=== PATIENT | female | born 1980 | race Caucasian/White ===

== ENCOUNTER → 2018-08-23 16:28 | Emergency (ER) | payer OTHER ==
--- NOTE | 2018-08-23 19:13 | ED ---
Palpitations / Dysrhythmia - HPI Summary HPI Summary: Pt is a 37 y/o F presenting to the ED with a chief complaint of heart palpitations. She states that she has hx of heart palpitations that come on randomly, last about 1.5 minutes, then go away for months at a time. Her last episode, she had given and they transferred her to the cardiac unit, where their tests were inconclusive. Today, she experienced palpitations four times in one hour, and fell down on one of them d/t dizziness. Afterwards, she had some chest discomfort that has since resolved. She reports palpitations, dizziness, falling, SOB, and chest discomfort. She denies LOC, hitting her head, and anxiety. - History of Current Complaint Chief Complaint: EDDysrhythmPalp Time Seen by Provider: 08/23/18 18:50 Hx Obtained From: Patient Onset/Duration: Sudden Onset, Lasting Minutes, Resolved Timing: Intermittent Episodes Lasting: - 1.5min Severity Initially: Moderate Severity Currently: None Character: Pounding Aggravating: Nothing Alleviating: Nothing Associated Signs & Symptoms: Dizzy, Chest Pain, Shortness of Breath - Allergy/Home Medications Allergies/Adverse Reactions: Allergies Allergy/AdvReac Type Severity Reaction Status Date / Time diphenhydramine Allergy Hives Verified 08/23/18 16:37 [From Benadryl] vancomycin Allergy Hives Verified 08/23/18 16:37 Home Medications: Home Medications NK [No Home Medications Reported] 08/23/18 [History Confirmed 08/23/18] PMH/Surg Hx/FS Hx/Imm Hx Previously Healthy: Yes Endocrine/Hematology History: Denies: Hx Diabetes Cardiovascular History: Denies: Hx Hypertension Psychiatric History: Denies: Hx Anxiety, Hx Panic Disorder - Surgical History Surgery Procedure, Year, and Place: 98 Tonsils, 2001 Interstim implant- removed 2009, 2010 Rt breast abcess,13, 14, 17 C-sections. Infectious Disease History: No Infectious Disease History: Denies: Traveled Outside the [place] in Last 30 Days - Family History Known Family History: Negative: Respiratory Disease - Social History Alcohol Use: Rare Hx Substance Use: No Substance Use Type: Reports: None Hx Tobacco Use: No Smoking Status (MU): Never Smoked Tobacco Review of Systems Positive: Palpitations, Chest Pain - discomfort Positive: Shortness Of Breath Musculoskeletal: Negative - head injury Positive: Other - fall Neurological: Other - dizziness Negative: Syncope Negative: Anxious All Other Systems Reviewed And Are Negative: Yes Physical Exam - Summary Physical Exam Summary: Appearance: Well appearing, no pain distress Skin: warm, dry, reflects adequate perfusion Head/face: normal Eyes: EOMI, ARISTIDES ENT: normal Neck: supple, non-tender Respiratory: CTA, breath sounds present Cardiovascular: RRR, pulses symmetrical Abdomen: non-tender, soft Musculoskeletal: normal, strength/ROM intact Neuro: normal, sensory motor intact, A&Ox3 Triage Information Reviewed: Yes Vital Signs On Initial Exam: Initial Vitals Temp Pulse Resp BP Pulse Ox 97.4 F 81 16 156/93 97 08/23/18 16:33 08/23/18 16:33 08/23/18 16:33 08/23/18 16:33 08/23/18 16:33 Vital Signs Reviewed: Yes Diagnostics - Vital Signs Vital Signs Temp Pulse Resp BP Pulse Ox 08/23/18 16:33 97.4 F 81 16 156/93 97 - Laboratory Result Diagrams: 08/23/18 19:32 08/23/18 19:32 Lab Statement: Any lab studies that have been ordered have been reviewed, and results considered in the medical decision making process. - Radiology CXR Radiology Interpretation Completed By: ED Physician Summary of Radiographic Findings: No acute process. Pending official radiology report. - EKG 1634 Cardiac Rate: NL - 83bpm EKG Rhythm: Sinus Rhythm ST Segment: Normal Ectopy: None Summary of EKG Findings: EKG at 1634 shows NSR at 83bpm with no STEMI. Course/Dx - Course Course Of Treatment: Pt is a 37 y/o F presenting to the ED with a chief complaint of heart palpitations that come on randomly and last for about 1.5 minutes at a time. She reports palpitations, dizziness, falling, SOB, and chest discomfort. She denies LOC, hitting her head, and anxiety. Pt's physical exam is normal. EKG at 1634 shows NSR at 83bpm with no STEMI. CXR shows no acute process, pending official radiology report. Pt will be d/c'ed home with dx of palpitations and instructions to follow up with Dr. Fraire of cardiology. She is stable and agreeable with this plan. - Diagnoses Differential Diagnosis/HQI/PQRI: Positive: Panic Disorder, Other - palpitations Provider Diagnoses: Palpitations Discharge - Sign-Out/Discharge Documenting (check all that apply): Patient Departure Patient Received Moderate/Deep Sedation with Procedure: No - Discharge Plan Condition: Stable Disposition: HOME Referrals: Mary Barreto MD [Primary Care Provider] - Suzy Fraire MD [Medical Doctor] - Additional Instructions: Please follow up with Dr. Fraire of cardiology within the next 3 days. Return to the emergency department with any new or worsening symptoms. - Billing Disposition and Condition Condition: STABLE Disposition: Home - Attestation Statements Document Initiated by Scribe: Yes Documenting Scribe: Kelley Hager Provider For Whom Clariceibe is Documenting (Include Credential): Tam Boyd MD. Scribe Attestation: Kelley Melton, shelbyed for Tam Boyd MD. on 08/23/18 at 2027. Scribe Documentation Reviewed: Yes Provider Attestation: The documentation as recorded by the Kelley henderson accurately reflects the service I personally performed and the decisions made by Tam maria MD. Status of Scribe Document: Viewed
[2018-08-23 19:38] LABS: ABS Basophils 0.1 10^3/ul (0-0.2); ABS Eosinophils 0.2 10^3/ul (0-0.6); ABS Lymphocytes 2.9 10^3/ul (1.0-4.8); ABS Monocytes 0.6 10^3/ul (0-0.8); ABS Neutrophils 4.7 10^3/ul (1.5-7.7); Eosinophil % 1.8 %; Hematocrit 39 % (35-47); Hemoglobin 13.5 g/dL (12.0-16.0); Lymphocyte % 34.5 %; Mean Corpuscular HGB Conc 34 g/dL (31-36); Mean Corpuscular Hemoglobin 32 pg (27-31); Mean Corpuscular Volume 94 fL (80-97); Mean Platelet Volume 7.6 fL (7.4-10.4); Nucleated Red Blood Cells % 0.1; Platelet Count 265 10^3/uL (150-450); Red Blood Count 4.19 10^6 /uL (3.70-4.87); Red Cell Distribution Width 13 % (10.5-15); White Blood Count 8.3 10^3/uL (3.5-10.8)
[2018-08-23 19:47] LABS: Activated Partial Thrombo Time 34.8 seconds (26.0-38.0); INR 1.03 (0.82-1.09)
[2018-08-23 20:00] LABS: Albumin 4.5 g/dL (3.2-5.2); Albumin/Globulin Ratio 1.7 (1-3); BUN/Creatinine Ratio 23.5 (8-20); Calcium 9.6 mg/dL (8.6-10.3); EGFR African American 117.2 (>60); EGFR Non-African American 96.8 (>60); Globulin 2.7 g/dL (2-4); Total Bilirubin 0.3 mg/dL (0.2-1.0); Total Protein 7.2 g/dL (6.4-8.9)
[2018-08-23 20:24] LABS: TSH (Thyroid Stimulating Horm) 3.65 mcIU/mL (0.34-5.60)
[2018-08-23 20:34] VITALS: BP 126/92
== END | disposition home or self-care (01) ==
LOC: ED 16:28
DX: R00.2 Palpitations (principal); R06.02 Shortness of breath; Z88.3 Allergy status to other anti-infective agents; Z88.8 Allergy status to other drugs, medicaments and biological substances
CPT/HCPCS: 36415; 71045; 80053; 83605; 83735; 83880; 84443; 84484; 85025; 85379; 85610; 85730; 93005; 99282

== ENCOUNTER 2018-10-20 19:42 | Observation (INO) | payer OTHER ==
--- OUTSIDE RECORDS SUMMARY | 2018-10-20 19:58 | XMS REPORT | Continuity of Care Document ---
:1980 External Reference #:[id number] Author Name EnmanuelRose Mary horneecca Care Team Providers Name Role Phone Mary Barreto MD Primary Care Physician Unavailable Payers Date Identification Numbers Payment Provider Subscriber Policy Number: [id number] [employer] Bernard Ireland PayID: [id number] [address] [place] [address] Family History Date Family Member(s) Observation Comments Father Cancer Father Hypertension Mother Hypertension Social History Type Date Description Comments Sex Unknown Lives With Lives With Children Tobacco Use Start: Unknown Never Smoked Cigarettes Smoking Status Reviewed: 06/30/18 Never Smoked Cigarettes Tobacco Use Start: Unknown Patient has never smoked Exercise Type/Frequency Exercises regularly Allergies, Adverse Reactions, Alerts Active Allergies Reaction Severity Comments Date Benadryl Hives 06/30/2018 Vancomycin Hives 06/30/2018 Medications Description No Active Medications Vital Signs Date Vital Result Comment 06/30/2018 1:52pm Height 67 inches 5'7" Weight 200.00 lb Heart Rate 81 /min BP Systolic 120 mmHg BP Diastolic 76 mmHg O2 % BldC Oximetry 97 % BMI (Body Mass Index) 31.3 kg/m2 Last Menstrual Period [id number] Results Test Date Facility Test Result H/L Range Note CBC No Diff 06/30/2018 [facility] White Blood 9.6 10^3/uL N 3.5-10.[address] [place] [address] [phone] Red Blood Count 4.22 10^6/uL N 3.70-4.87 Hemoglobin 13.7 g/dL N 12.0-16.0 Hematocrit 40 % N 33-41 Mean Corpuscular Volume 94 fL N 80-97 Mean Corpuscular Hemoglobin 33 pg High 27-31 Mean Corpuscular HGB Conc 35 g/dL N 31-36 Red Cell Distribution Width 12 % N 10.5-15 Platelet Count 286 10^3/uL N 150-450 Mean Platelet Volume 8.2 fL N 7.4-10.4 Comp Metabolic Panel 06/30/2018 [facility] Sodium 141 mmol/L N 135-145 [address] [place] [address] [phone] Potassium 4.3 mmol/L N 3.5-5.0 Chloride 106 mmol/L N 101-111 Co2 Carbon Dioxide 27 mmol/L N 22-32 Anion Gap 8 mmol/L N 2-11 Glucose 83 mg/dL N 70-100 Blood Urea Nitrogen 16 mg/dL N 6-24 Creatinine 0.75 mg/dL N 0.51-0.95 BUN/Creatinine Ratio 21.3 High 8-20 Calcium 9.9 mg/dL N 8.6-10.3 Total Protein 7.0 g/dL N 6.4-8.9 Albumin 4.7 g/dL N 3.2-5.2 Globulin 2.3 g/dL N 2-4 Albumin/Globulin Ratio 2.0 N 1-3 Total Bilirubin 0.30 mg/dL N 0.2-1.0 Alkaline Phosphatase 76 U/L N 34-104 Alt 12 U/L N 7-52 Ast 15 U/L N 13-39 Egfr Non- 86.5 >60 Egfr 104.6 >60 1 Laboratory test 06/30/2018 [facility] TSH (Thyroid 2.18 mcIU/mL N 0.34-5.[address] [place]) [place] [address] [phone] Vitamin D Total 25(Oh) 18.9 ng/mL Low 20-50 Laboratory test 06/30/2018 [facility] Cytology SEE RESULT BELOW 2 finding [address] [place] [address] [phone] 1 Because ethnic data is not always readily available, this report includes an eGFR for both -Americans and non- Americans. The National Kidney Disease Education Program (NKDEP) does not endorse the use of the MDRD equation for patients that are not between the ages of 18 and 70, are , have extremes of body size, muscle mass, or nutritional status, or are non- or non-. According to the National Kidney Foundation, irrespective of diagnosis, the stage of the disease is based on the level of kidney function: Stage Description GFR(mL/min/1.73 m(2)) 1 Kidney damage with normal or decreased GFR 90 2 Kidney damage with mild decrease in GFR 60-89 3 Moderate decrease in GFR 30-59 4 Severe decrease in GFR 15-29 5 Kidney failure <15 (or dialysis) 2 SEE RESULT BELOW Name: BLANCA IRELAND : [address]: Mimi Mackey NP [facility] Acct: [id number] Unit: [id number] AGE: 37 Location: [facility] Re06/30/18 SEX: F Status: REG REF SPEC: [id number] YONI: 06/30/18- SUBM DR: Mimi Mackey NP, CNM REQ: [id number] RECD: 06/30/18 STATUS: SOUT _ ORDERED: TP IMAGE ANALYS, HPV/Thin Prep COMMENTS: [id number] Negative for Intraepithelial lesion or Malignancy Date Time Test Result Flag (u) Normal Range 06/30/18 1443 @ HPV RNA Negative Negative @ @ The high-risk HPV types detected by the assay include: 16, @ 18, 31, 33, 35, 39, 45, 51, 52, 56, 58, 59, 66, and 68. A. Ectocervical/Endocervical Specimen Adequacy: Satisfactory of evaluation Transformation zone component identified Patient Information: HPV: High risk HPV RNA testing regardless of pap results. Actual Specimen Date: 06/30/18 Last Menstrual Date: 06/14/18 ?: N Post Menopausal?: N Hysterectomy?: N Signed by and Reported on: AISHA Morillo(ASCP) 1029 This Pap test was evaluated with the assistance of the [employer] Test Imaging System. Due to cytologic findings at the director of occupational therapy microscope, comprehensive manual rescreening by a Chief Psychologist may be required. The Pap Smear is a screening test designed to aid in the detection of premalignant and malignant conditions of the uterine cervix. It is not a diagnostic procedure and should not be used as the sole means of detecting cervical cancer. Both false- positive and false- negative reports do occur. Depending on your risk status, a Pap smear should be obtained and evaluated every 1-3 years. END OF REPORT DEPARTMENT OF PATHOLOGY, [address] [place] [address] Devon Andres M.D. 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 Will mail letter with result, rec call office if does not receive result within 2 weeks.N93.9 Abnormal uterine and vaginal bleeding, unspecifiedComments:Will have labs done today and will schedule a pelvic ultrasound. She was advised to go to the emergency department for increased pain, heavy bleeding, severe nausea/vomiting or fever.R10.32 Left lower quadrant pain
[2018-10-20] MEDS ORDERED: ED cefTRIAXone 1 GM/50 ML 1 GM/50 ML PREMIX.SET IVPB ONE (21:31)
--- NOTE | 2018-10-20 21:42 | ED ---
Abdominal Pain/Female - HPI Summary HPI Summary: 37 yo female presents to [facility] ED with RLQ pain. She tells me that around 1500 today she developed sudden onset moderate RLQ pain. She thought it was gas or needing to have a BM, but this did not change her symptoms. She went to lay down for about 2 hours and pain increased. She began to have pain in her LLQ as well. She was feeling well this morning. Denies fever, chills, SOB, chest pain, n/v, dysuria, flank pain, vaginal bleeding or discharge. LMP was 1 month ago. Sexually active with who has vasectomy. Hx of 3 c sections, but no other abdominal surgeries. - History of Current Complaint Chief Complaint: EDAbdPain Stated Complaint: ABD PAIN/FEVER PER PT Time Seen by Provider: 10/20/18 21:42 Hx Obtained From: Patient Onset/Duration: Sudden Onset Severity Initially: Moderate Severity Currently: Moderate Pain Intensity: 6 Pain Scale Used: 0-10 Numeric Allergies/Adverse Reactions: Allergies Allergy/AdvReac Type Severity Reaction Status Date / Time diphenhydramine Allergy Hives Verified 10/20/18 19:51 [From Benadryl] vancomycin Allergy Hives Verified 10/20/18 19:51 PMH/Surg Hx/FS Hx/Imm Hx Endocrine/Hematology History: Denies: Hx Diabetes Cardiovascular History: Denies: Hx Hypertension Respiratory History: Denies: Hx Asthma, Hx Chronic Obstructive Pulmonary Disease (COPD) GI History: Denies: Hx Crohn's Disease, Hx Diverticulosis, Hx Gall Bladder Disease, Hx Gastroesophageal Reflux Disease Psychiatric History: Denies: Hx Anxiety, Hx Panic Disorder - Surgical History Surgical History: Yes Surgery Procedure, Year, and Place: 98 Tonsils, 2001 Interstim implant- removed 2009, 2010 Rt breast abcess,13, 14, 17 C-sections. Infectious Disease History: Yes Infectious Disease History: Denies: Traveled Outside the [place] in Last 30 Days - Family History Known Family History: Negative: Respiratory Disease - Social History Occupation: Employed Full-time Lives: With Family Alcohol Use: Rare Hx Substance Use: No Substance Use Type: Reports: None Hx Tobacco Use: No Smoking Status (MU): Never Smoked Tobacco Review of Systems Constitutional: Negative Eyes: Negative ENT: Negative Cardiovascular: Negative Respiratory: Negative Positive: Abdominal Pain Genitourinary: Negative Musculoskeletal: Negative Skin: Negative Neurological: Negative Psychological: Normal All Other Systems Reviewed And Are Negative: Yes Physical Exam - Summary Physical Exam Summary: GENERAL: NAD. WDWN. No pain distress. SKIN: No rashes, sores, lesions, or open wounds. NECK: Supple. Nontender. No lymphadenopathy. CHEST: CTAB. No r/r/w. No accessory muscle use. Breathing comfortably and in no distress. CV: RRR. Without m/r/g. Pulses intact. Cap refill <2seconds ABDOMEN: Moderate TTP RLQ at [place]. Positive rovsing's and psoas. Soft. No distention or guarding. No CVA tenderness. Bowel sounds present NEURO: Alert. PSYCH: Age appropriate behavior. Triage Information Reviewed: Yes Vital Signs On Initial Exam: Initial Vitals Temp Pulse Resp BP Pulse Ox 98.1 F 92 16 153/92 96 10/20/18 19:47 10/20/18 19:47 10/20/18 19:47 10/20/18 19:47 10/20/18 19:47 Vital Signs Reviewed: Yes Diagnostics - Vital Signs Vital Signs Temp Pulse Resp BP Pulse Ox 10/20/18 19:47 98.1 F 92 16 153/92 96 - Laboratory Lab Results: Laboratory Tests 10/20/18 10/20/18 10/20/18 21:49 21:49 22:42 WBC 13.3 H RBC 4.30 Hgb 13.7 Hct 41 MCV 94 MCH 32 H MCHC 34 RDW 13 Plt Count 225 MPV 7.8 Neut % (Auto) 67.3 Lymph % (Auto) 22.4 [place] % (Auto) 8.9 Eos % (Auto) 1.0 Baso % (Auto) 0.4 Absolute Neuts (auto) 9.0 H Absolute Lymphs (auto) 3.0 Absolute Monos (auto) 1.2 H Absolute Eos (auto) 0.1 Absolute Basos (auto) 0.1 Absolute Nucleated RBC 0.0 Nucleated RBC % 0.1 Sodium 140 Potassium 4.2 Chloride 107 Carbon Dioxide 25 Anion Gap 8 BUN 14 Creatinine 0.81 Est GFR ( Amer) 95.7 Est GFR (Non-Af Amer) 79.1 BUN/Creatinine Ratio 17.3 Glucose 96 Calcium 9.4 Total Bilirubin 0.40 AST 14 ALT 13 Alkaline Phosphatase 61 C-Reactive Protein 4.27 Total Protein 7.5 Albumin 4.7 Globulin 2.8 Albumin/Globulin Ratio 1.7 Lipase 23 Beta HCG, Quant < 0.60 Urine Color Yellow Urine Appearance Clear Urine pH 5.0 Ur Specific [place] 1.032 H Urine Protein 1+(30 mg/dl) A Urine Ketones Negative Urine Blood 2+ A Urine Nitrate Negative Urine Bilirubin Negative Urine Urobilinogen Negative Ur Leukocyte Esterase Negative Urine WBC (Auto) Trace(0-5/hpf) Urine RBC (Auto) 3+(>10/hpf) A Ur Squamous Epith Cells Present A Urine Bacteria 1+ A Urine Glucose Negative Result Diagrams: 10/20/18 21:49 10/20/18 21:49 Lab Statement: Any lab studies that have been ordered have been reviewed, and results considered in the medical decision making process. - CT abd/pel CT Interpretation Completed By: Radiologist Summary of CT Findings: IMPRESSION: Equivocal findings of acute appendicitis. No additional findings to correlate. with patient's symptomatology. Abdominal Pain Fem Course/Dx - Course Course Of Treatment: CT as above with RLQ TTP and leukocytosis. Discussed case with Dr. Penn and agrees to admit the pt. He advises no anbx at this time and make pt npo. Discussed with pt and she is agreeable to this. - Diagnoses Provider Diagnoses: Appendicitis - Provider Notifications Discussed Care Of Patient With: Juice Penn Time Discussed With Above Provider: 23:35 Instructed by Provider To: Admit As Inpatient Discharge - Sign-Out/Discharge Documenting (check all that apply): Patient Departure Patient Received Moderate/Deep Sedation with Procedure: No - Discharge Plan Condition: Stable Disposition: ADMITTED TO [facility] Referrals: Mary Barreto MD [Primary Care Provider] - - Billing Disposition and Condition Condition: STABLE Disposition: Admitted to [facility]
[2018-10-20 21:57] LABS: ABS Basophils 0.1 10^3/ul (0-0.2); ABS Eosinophils 0.1 10^3/ul (0-0.6); ABS Monocytes 1.2 10^3/ul (0-0.8); Hematocrit 41 % (35-47); Hemoglobin 13.7 g/dL (12.0-16.0); Lymphocyte % 22.4 %; Mean Corpuscular HGB Conc 34 g/dL (31-36); Mean Corpuscular Hemoglobin 32 pg (27-31); Mean Corpuscular Volume 94 fL (80-97); Mean Platelet Volume 7.8 fL (7.4-10.4); Nucleated Red Blood Cells % 0.1; Platelet Count 225 10^3/uL (150-450); Red Cell Distribution Width 13 % (10-15); White Blood Count 13.3 10^3/uL (3.5-10.8)
[2018-10-20 22:14] LABS: ALT 13 U/L (7-52); AST 14 U/L (13-39); Albumin 4.7 g/dL (3.2-5.2); Albumin/Globulin Ratio 1.7 (1-3); Alkaline Phosphatase 61 U/L (34-104); Anion Gap 8 mmol/L (2-11); BUN/Creatinine Ratio 17.3 (8-20); Blood Urea Nitrogen 14 mg/dL (6-24); C Reactive Protein 4.27 mg/L (<8.01); CO2 Carbon Dioxide 25 mmol/L (22-32); Calcium 9.4 mg/dL (8.6-10.3); Chloride 107 mmol/L (101-111); EGFR African American 95.7 (>60); EGFR Non-African American 79.1 (>60); Globulin 2.8 g/dL (2-4); Glucose 96 mg/dL (70-100); Potassium 4.2 mmol/L (3.5-5.0); Sodium 140 mmol/L (135-145); Total Protein 7.5 g/dL (6.4-8.9)
[2018-10-20 22:21] LABS: HCG Pregnancy < 0.60 mIU/mL
[2018-10-20 22:53] LABS: Urine Appearance Clear; Urine Bacteria 1+ (Absent); Urine Bilirubin Negative (Negative); Urine Blood 2+ (Negative); Urine Color Yellow; Urine Glucose Negative (Negative); Urine Ketones Negative (Negative); Urine Nitrite Negative (Negative); Urine Protein 1+(30 mg/dL) (Negative); Urine Red Blood Cell 3+(>10/hpf) (Absent); Urine Specific Gravity 1.032 (1.010-1.030); Urine Squamous Epithelial Cell Present (Absent); Urine Urobilinogen Negative (Negative); Urine White Blood Cell Trace(0-5/hpf) (Absent)
[2018-10-20] MEDS ORDERED: HYDROmorphone INJ* 0.5 MG/0.5 ML SYRINGE IV SLOW PU PRN (23:45)
[2018-10-20] MEDS ORDERED: Lactated Ringers 1000 ML Bag* 1,000 ML IV SCH (23:45)
[2018-10-20] MEDS ORDERED: Acetaminophen TAB* 325 MG PO PRN (23:45)
[2018-10-20] MEDS ORDERED: Ondansetron INJ* 2 MG/ML VIAL IV PRN (23:45)
[2018-10-21] MEDS: HYDROmorphone INJ1* 1 MG/ML SYRINGE IV SLOW PU PRN ×6 (01:01→21:48)
[2018-10-21] MEDS: hydrOXYzine HCL TAB* 25 MG PO PRN ×3 (04:09→18:15)
[2018-10-21 07:33] LABS: ABS Basophils 0.1 10^3/ul (0-0.2); ABS Eosinophils 0.1 10^3/ul (0-0.6); ABS Lymphocytes 2.4 10^3/ul (1.0-4.8); ABS Monocytes 0.6 10^3/ul (0-0.8); ABS Neutrophils 4.2 10^3/ul (1.5-7.7); Eosinophil % 1.3 %; Hematocrit 37 % (35-47); Hemoglobin 12.8 g/dL (12.0-16.0); Lymphocyte % 32.5 %; Mean Corpuscular HGB Conc 35 g/dL (31-36); Mean Corpuscular Hemoglobin 32 pg (27-31); Mean Corpuscular Volume 93 fL (80-97); Mean Platelet Volume 7.8 fL (7.4-10.4); Platelet Count 210 10^3/uL (150-450); Red Blood Count 3.94 10^6 /uL (3.70-4.87); Red Cell Distribution Width 13 % (10-15); White Blood Count 7.4 10^3/uL (3.5-10.8)
[2018-10-21 07:50] LABS: BUN/Creatinine Ratio 17.6 (8-20); C Reactive Protein 15.35 mg/L (<8.01); Calcium 8.9 mg/dL (8.6-10.3); EGFR African American 117.2 (>60); EGFR Non-African American 96.8 (>60); Potassium 3.8 mmol/L (3.5-5.0)
[2018-10-21] MEDS ORDERED: Ketorolac INJ* 30 MG/ML 1 ML VIAL ONE (08:16)
[2018-10-21] MEDS ORDERED: Ondansetron INJ* 2 MG/ML VIAL ONE ×2 (08:16→10:44)
[2018-10-21] MEDS ORDERED: Propofol* 10 MG/ML 20 ML BTL ONE (08:16)
[2018-10-21] MEDS ORDERED: Dexamethasone IV* 4 MG/ML 1 ML (4 MG) ONE (08:16)
[2018-10-21] MEDS ORDERED: Midazolam* 1 MG/ML 5 ML VIAL (5 MG) ONE (08:16)
[2018-10-21] MEDS ORDERED: fentaNYL* 50 MCG/ML 2 ML VIAL (100 MCG VIAL) ONE ×2 (08:16→11:15)
[2018-10-21] MEDS ORDERED: Lidocaine 2% PF * 5 ML VIAL ONE (08:16)
[2018-10-21] MEDS ORDERED: Cisatracurium* 2 MG/ML MDV 5 ML ONE (08:16)
[2018-10-21] MEDS ORDERED: Bupivacaine 0.25% W/EPI* 10 ML SDV ONE (08:19)
[2018-10-21] MEDS ORDERED: ceFOXitin 2 GM IVPREMIX* 2 GM/50 ML BAG ONE (08:41)
[2018-10-21] MEDS ORDERED: Neostigmine Methylsulfate* 1 MG/ML 10 ML VIAL (1 mg/ml) ONE (09:57)
[2018-10-21] MEDS ORDERED: Glycopyrrolate IV* 0.2 MG/ML 1 ML VIAL ONE (09:57)
[2018-10-21] MEDS ORDERED: Naloxone* 0.4 MG/ML 1 ML VIAL IV PRN (10:00)
[2018-10-21] MEDS ORDERED: fentaNYL* 50 MCG/ML 2 ML VIAL (100 MCG VIAL) IV PRN (10:00)
[2018-10-21] MEDS ORDERED: Ondansetron INJ* 2 MG/ML VIAL IV PRN (10:00)
--- NOTE | 2018-10-21 10:20 | BRIEFOPN ---
Brief Operative Note - Surgery Procedures: OPERATIVE REPORT Pre-op: Acute appendicitis Post-Op: Same, suppurative appendicitis Procedure:Laparoscopic appendectomy Surgeon: MD Fili Asst: none Anes: general with local , Dr. Ortiz IVF:1 liter of crystalloid EBL:min Specimen: appendix Drain: none Wound: 3 To PACU
[2018-10-21] MEDS ORDERED: Scopolamine 1.5 mg* PATCH ONE (10:40)
--- NOTE | 2018-10-21 10:42 | HP ---
CC: [facility]; Dr. Mary Barreto, Family Medicine [facility] HISTORY AND PHYSICAL: DATE OF ADMISSION: 10/21/18 CHIEF COMPLAINT: Right lower quadrant abdominal pain. HISTORY OF PRESENT ILLNESS: Ms. Blanca Reyes is a very pleasant 37-year-old woman, who developed some mild epigastric pain and also some right lower quadrant abdominal pain at around 3 o'clock in th e afternoon. This was associated with anorexia, with no nausea or vomiting. She had no fevers or di arrhea. She had eaten normal lunch and was feeling well during the day. The pain progressively worsened in the right lower quadrant and she presented to the emergency room l ater last night. She was noted to have no fever, but an elevated white blood cell count of 13,000. The rest of her laboratory workup was unremarkable. She had some suprapubic discomfort as well. She had no dysuria or flank pain. There was no vaginal b leeding or discharge. Her last menstrual period was about a month ago and she is presently nursing h er youngest child. She has had 3 sections, but no other abdominal surgeries. In the emergency room, she underwent a CT scan of the abdomen and pelvis. I did review these images. This shows an appendix, which showed some mild dilation with some thickening of the wall, but with n o periappendiceal stranding. There was no fluid or abscess noted. There were no other acute finding s. In light of her discomfort, leucocytosis, and the CT scan findings suggestive of an early acute appen dicitis, she has admitted to he surgical service for further care. PAST MEDICAL HISTORY: Unremarkable. PAST SURGICAL HISTORY: sections x3. MEDICATIONS: She has no medicines. ALLERGIES: ADHESIVE TAPE, DIPHENHYDRAMINE, and VANCOMYCIN. SOCIAL HISTORY: She has 4 young children. She is presently . 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 She uses alcohol on very rare social basis. S he does not use tobacco, does not use illicit drugs. 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 REVIEW OF SYSTEMS: Cerebrovascular: No dizziness or visual disturbances. Cardiovascular: No chest pain, shortness of breath. Pulmonary: No wheezing or wheezing or hemoptysis. GI: As per above. : As per above. She has had no vaginal bleeding. PHYSICAL EXAMINATION GENERAL: She is a well-developed, well nourished, slightly overweight female, with normal attention to grooming. She is awake, alert, conversive, and very pleasant. VITAL SIGNS: Temperature 98.5, pulse 79, blood pressure 129/69. LUNGS: Clear to auscultation with normal respiratory effort. HEART: Regular rate and rhythm, without murmur, rubs or gallops. ABDOMEN: Soft, nondistended. She has well-healed low transverse incisions in the suprapubic area wi thout hernia. No umbilical hernia. She has diminished bowel sounds throughout. She has an exquisit e tenderness in the right lower quadrant with some voluntary guarding. There is no generalized abdom inal discomfort or peritoneal irritation. PSYCHIATRIC: She is awake, alert, oriented x3. She has normal judgment and insight. LABORATORY DATA: Laboratory values last night included a white blood cell count of 13,000. Her [facility] te blood cell count today is 7.4; however, she did receive a dose of antibiotics in the emergency carla m prior to being admitted to the floor. IMPRESSION: Acute appendicitis. This is relatively early in the course of the process and her physi shanae exam is showing significant and exquisite right lower quadrant abdominal pain. Last night she hou d a leukocytosis and also had a CT scan, which shows a thickened appendix without periappendiceal inf lammation. However, I think that this scan was done quite early in the course of her presentation. I do believe she has appendicitis and I discussed these findings with her and, after our discussion, I recommended that she proceed with a laparoscopic appendectomy today. We did discuss alternatives to surgery, including IV and oral antibiotics, but I feel with the early presentation, the fact that jenni galvez has 4 young children at home, and as she is nursing, that appendectomy is the most appropriate care as opposed to a several-day hospital stay with oral antibiotics with a chance that this may fail and require a later appendectomy. PLAN: After our discussion, the plan will be: 1. She will be admitted to the short unit. 2. She will be kept n.p.o. and started on IV fluids. 3. Plan is laparoscopic appendectomy today. The procedure was discussed with the patient and the ri sks of, but not limited to, bleeding, infection, intraabdominal abscess formation, injury to peritone al and retroperitoneal structures, possibility of an open procedure, staple line leak with abscess, s epsis, peritonitis, blood clots, and the risk of general anesthesia were all explained. [id number]/[facility] #: [id number]
--- NOTE | 2018-10-21 13:58 | OP ---
CC: [facility] OPERATIVE REPORT: DATE OF OPERATION: 10/21/18 DATE OF : 78 SURGEON: Juice Penn MD. ABLE BODIED WATCHMAN: None. ANESTHESIOLOGIST: Dr. Ortiz. ANESTHESIA: General with local. PRE-OP DIAGNOSIS: Acute appendicitis. POST-OP DIAGNOSIS: Acute suppurative appendicitis. OPERATIVE PROCEDURE: Laparoscopic appendectomy. ESTIMATED BLOOD LOSS: Minimal. IV FLUIDS: 1 L of crystalloid. WOULD CLASSIFICATION: III. SPECIMENS: Appendix. DRAINS: None. COMPLICATIONS: None. FINDINGS: Acute appendicitis with minimal amount of fibrin noted. No evidence of abscess, gangrene or peritonitis noted. DESCRIPTION OF PROCEDURE: Written and informed consent was obtained, the abdomen was marked with ind elible ink and preoperative antibiotics were administered. The patient was taken to the operating ro om and placed in the supine position. Sequential compression devices and a warming blanket were appli ed. General anesthesia was administered. The abdomen was prepped and draped in the usual sterile fashion. Time-out verification was completed. Initially, a small vertical incision was made just inferior to umbilicus, in the midline. The perito trell cavity was entered under direct vision. A 12 mm port was inserted and the abdomen was insufflat ed to 15 mmHg. A 5 mm port was placed in the left lower quadrant abdominal wall. Evaluation revealed the omentum was adherent to the anterior abdominal wall in the midline from the p revious sections. There was no bowel involvement and this was taken down using the endoscop ic LigaSure device to expose the remainder of the anterior abdominal wall and the right lower quadran t. A second 5 mm port was placed in the suprapubic position. The terminal ileum was identified. It was normal. The bladder was somewhat distended, but was isela l. The uterus appeared to be slightly enlarged, but was also normal. The right ovary was identified and this appeared to be normal as well. The cecum was normal. I identified the appendix, which was directed down into the pelvis, coming off the cecum. It was com pletely intraperitoneal. It was distended and hyperemic, with a small amount of fibrinous exudate, a nd the mesentery was edematous as well, all consistent with findings of acute appendicitis. The mesoappendix was divided sequentially with the LigaSure device down to the base of the appendix. The base of the appendix and cecum were normal. A flores load of a 45 mm Endo GREGG stapler was then used to divide the appendix from the cecum and this was placed in the EndoCatch bag and brought out throu gh the umbilical incision. Hemostasis was assured. The pelvis and right lower quadrant were irrigated with saline. All ports were removed under direct vision of the camera. The umbilical fascia was closed with sever al interrupted 0 Vicryl suture. The skin at all 3 incisions were approximated with subcuticular 4-0 Vicryl suture. Steri-Strips were applied. The patient tolerated the procedure well, was taken to the recovery room in stable condition. [id number]/[facility] #: [id number]
[2018-10-21] MEDS: Ketorolac INJ* 30 MG/ML 1 ML VIAL IV PRN (18:11)
[2018-10-22] MEDS: Ketorolac INJ* 30 MG/ML 1 ML VIAL IV PRN (04:47)
[2018-10-22] MEDS: HYDROmorphone INJ1* 1 MG/ML SYRINGE IV SLOW PU PRN (05:42)
[2018-10-22] MEDS: hydrOXYzine HCL TAB* 25 MG PO PRN (05:42)
[2018-10-22 08:15] VITALS: BP 110/40
--- NOTE | 2018-10-22 09:03 | PN ---
Progress Note - Progress Note Date of Service: 10/22/18 SOAP: Subjective: Doing well Tolerating po and passing flatus, voiding well Pain minimal but needed some Dilaudid this AM Slept well Objective: Temp Pulse Resp BP Pulse Ox 98 F 62 16 110/40 97 10/22/18 07:34 10/22/18 07:34 10/22/18 07:40 10/22/18 08:14 10/22/18 07:34 Intake & Output 10/20/18 10/21/18 10/22/18 10/23/18 06:59 06:59 06:59 06:59 Intake Total 0 2716 Output Total 0 2720 Balance 0 -4 Weight 207 lb Intake: IV Fluids 1786 LR 1736 NS 50ML, Cefoxitin 2G 50 Oral 0 930 Output: Urine 0 2720 Other: Estimated Void Medium # Bowel Movements 0 # Voids 1 PEX: Comfortable Lungs are clear Cor is RRR Abd is soft and non-distended. Bowel sounds are present. Incisions CDI Ext without edema Assessment: POD#1 s/p lap appy for acute appendicitis Post op nausea and vomiting-resolved Plan: D/C home today Instructions given Rx for pain--Percocet if needed Follow up in office
[2018-10-22] MEDS ORDERED: oxyCODONE/Acetamin 5/325 MG* TAB PO ONE (09:54)
[2018-10-22] MEDS ORDERED: oxyCODONE/Acetamin 5/325 MG* TAB ONE (09:57)
--- NOTE | 2018-10-22 20:59 | DS ---
CC: Dr. Mary Barreto, [facility] * DISCHARGE SUMMARY: DATE OF ADMISSION: 10/20/18 DATE OF DISCHARGE: 10/22/18 PRINCIPAL DIAGNOSIS: Acute appendicitis. PROCEDURE PERFORMED: Laparoscopic appendectomy. DISPOSITION: To home. CONDITION ON DISCHARGE: Good, stable. MEDICINES ON DISCHARGE: 1. Percocet 1 tablet p.o. q. 6 hours 5/325, #6 maximum daily dose. 2. She was also given recommendation to take just plain Tylenol or nonsteroidal pain medicine for analgesic purposes. WOUND INSTRUCTIONS: Written instructions were given as well as diet, activity, and wound care. FOLLOWUP: The patient was instructed to call the office on 10/23/18, make an appointment to be seen in 7 to 10 days. Worrisome signs that would prompt call to the office were given and her questions were answered. HISTORY OF PRESENT ILLNESS: Ms. Blanca Reyes is a 37-year-old woman who was healthy otherwise, who presented to the emergency room with about 8 to 10 hours of severe right lower quadrant abdominal pain. This was associated with some nausea without vomiting and no fever. She had no diarrhea. In the emergency room, she was noted to have a mild elevation of white blood cell count, was afebrile. She has tenderness in the right lower quadrant. The CAT scan of the abdomen and pelvis obtained showed thickened appendiceal wall with some dilation but no evidence of periappendiceal inflammation. HOSPITAL COURSE: Surgical consultation was obtained in the emergency room and she was admitted to the surgical service. She was kept n.p.o. and started on IV fluids. She was not administered antibiotics initially and over the next 6 to 8 hours, her pain progressively worsened and she was taken to the operating room on the morning of hospital day #1 where she underwent a laparoscopic appendectomy for acute, uncomplicated appendicitis. Postoperatively she did well; however, she had persistent postoperative nausea limiting her oral intake and a decision was made to maintain her observation status in the hospital on the night of postoperative day #1. By postoperative day #1, she was tolerating a regular diet. She was afebrile with stable vital signs and her pain was adequately controlled with oral analgesia. She was discharged home with the above instructions. [id number]/[facility] #: [id number] MTDInessa
== END 2018-10-22 10:45 | disposition home or self-care (01) ==
LOC: ED 19:42 → SSU 23:45
PROVIDERS: ADMIT Surgery; ATTEND Surgery
DX: K35.80 Unspecified acute appendicitis (principal)
CPT/HCPCS: 36415; 74176; 80048; 80053; 81003; 81015; 83690; 84702; 85025; 86140; 87086; 88304; 96361; 96374; 96375; 96376; 99284; A9270-GY; C1776; G0378; J0694; J1100; J1170; J1885; J2250; J2405; J2704; J2710; J3010

== ENCOUNTER 2019-05-28 09:00 | Emergency (ER) | payer OTHER ==
--- OUTSIDE RECORDS SUMMARY | 2019-05-28 09:18 | XMS REPORT | Continuity of Care Document ---
:1980 External Reference #:[id number] Author Name Mary Barreto M.D. Address [address] [place] [address] Care Team Providers Name Role Phone Mary Barreto M.D. 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 05/28/2019 4mg Tablets every 6 hours as Dispers needed History Medications No Active Medications Unknown 05/28/2019 - 05/28/2019 Immunizations Description No Information Available Vital Signs Date Vital Result Comment 05/28/2019 8:23am BP Systolic 120 mmHg BP Diastolic 80 mmHg Heart Rate 80 /min Body Temperature 97.9 F Respiratory Rate 18 /min Weight 206.00 lb 03/11/2018 11:31am BP Systolic 120 mmHg BP Diastolic 86 mmHg Heart Rate 78 /min Body Temperature 97.7 F Respiratory Rate 17 /min O2 % BldC Oximetry 98 % Ra Height 67.5 inches 5'7.50" Weight 208.00 lb BMI (Body Mass Index) 32.1 kg/m2 Results Description No Information Available Procedures Description No Information Available Medical Devices Description No Information Available Encounters Type Date Location Provider Dx Diagnosis Office Visit 05/28/2019 Main Office Mary Barreto M.D. R10.11 Right upper 8:20a quadrant pain Assessments Date Code Description Provider 05/28/2019 R10.11 Right upper quadrant pain Mary Barreto M.D. Plan of Treatment 05/28/2019 - Mary Barreto M.D.R10.11 Right upper quadrant painNew Medication: Ondansetron 4 mg - 1 tab by mouth every 6 hours as neededNew Xrays:Ultrasound Abdominal Limited, Ordered: 05/28/19Comments:The patient was instructed to call if symptoms of abdominal pain worsen. stick to plain foods or clear liquids ; suspect possible gallstones vs pancreatitis, advised ER if symptoms worsen today ; patient would like to hold on US todayAllComments:Medication Management Patient Understands medications she's taking? Yes No Are there Barriers to Adherence? Yes No Has the patient been asked about herbal supplements and therapies, and OTC meds? Yes No Functional Status Description No Information Available Mental Status Description No Information Available Referrals Description No Information Available
[2019-05-28] MEDS ORDERED: Ondansetron INJ* 2 MG/ML VIAL IV ONE (10:14)
--- NOTE | 2019-05-28 10:17 | ED ---
Abdominal Pain/Female - HPI Summary HPI Summary: Patient is a 38-year-old female who presents emergency department for upper abdominal pain times several days. Patient associated symptoms of nausea and decreased appetite. Denies fever, chills, cough, shortness of breath, chest pain, dysuria, hematuria. No past medical history. Symptoms are moderate in severity. No current modifying factors. - History of Current Complaint Chief Complaint: EDAbdPain Stated Complaint: GALLBLADDER ISSUE PER PT Time Seen by Provider: 05/28/19 10:04 Hx Obtained From: Patient Pain Intensity: 6 Allergies/Adverse Reactions: Allergies Allergy/AdvReac Type Severity Reaction Status Date / Time Adhesive Tape Allergy Blisters Verified 05/28/19 09:03 diphenhydramine Allergy Hives Verified 05/28/19 09:03 [From Benadryl] vancomycin Allergy Hives Verified 05/28/19 09:03 Home Medications: Home Medications Pantoprazole TAB * [Protonix TAB*] 40 mg PO DAILY #30 tab 05/28/19 [Rx] PMH/Surg Hx/FS Hx/Imm Hx Previously Healthy: Yes Endocrine/Hematology History: Reports: Hx Anemia - with pregnancies Denies: Hx Blood Disorders, Hx Blood Transfusions, Hx Bone Marrow Disease, Hx Diabetes, Hx Sickle Cell Disease, Hx Thyroid Disease, Hx Unexplained Bleeding Cardiovascular History: Reports: Other Cardiovascular Problems/Disorders - irregular heartbeat Denies: Hx Cardiac Arrest, Hx Congestive Heart Failure, Hx Deep Vein Thrombosis, Hx Embolism, Hx Hypercholesterolemia, Hx Hypertension, Hx Pacemaker/ ICD, Hx Rheumatic Fever Respiratory History: Reports: Hx Pneumonia, Hx Seasonal Allergies Denies: Hx Asthma, Hx Chronic Obstructive Pulmonary Disease (COPD), Hx Sleep Apnea GI History: Denies: Hx Crohn's Disease, Hx Diverticulosis, Hx Gall Bladder Disease, Hx Gastroesophageal Reflux Disease, Hx Ulcer History: Reports: Hx Kidney Infection, Other Problems/Disorders - possible interstitial cystitis with interstim placement & removal Denies: Hx Acute Renal Failure, Hx Chronic Renal Failure, Hx Dialysis Sensory History: Reports: Hx Contacts or Glasses - contacts Denies: Hx Cataracts, Hx Legally Blind, Hx Hearing Aid Opthamlomology History: Reports: Hx Contacts or Glasses - contacts Denies: Hx Cataracts, Hx Legally Blind Psychiatric History: Denies: Hx Anxiety, Hx Depression, Hx Panic Disorder - Surgical History Surgery Procedure, Year, and Place: 98 Tonsils, 2000 Interstim implant- removed 2009, 2010 Rt breast abcess I&D, MRSA (+), treated ; vaginal delivery 2011, 3 c- sections- 2012, 14, 17. Hx Anesthesia Reactions: No Infectious Disease History: Yes Infectious Disease History: Reports: Hx of Known/Suspected MRSA Denies: Traveled Outside the [place] in Last 30 Days - Family History Known Family History: Positive: Non-Contributory Negative: Respiratory Disease - Social History Occupation: Employed Full-time Lives: With Family Alcohol Use: None Hx Substance Use: No Substance Use Type: Reports: None Hx Tobacco Use: No Smoking Status (MU): Never Smoked Tobacco Review of Systems Constitutional: Negative Negative: Fever, Chills Cardiovascular: Negative Negative: Palpitations, Chest Pain Respiratory: Negative Negative: Shortness Of Breath, Cough Positive: Abdominal Pain, Nausea. Negative: Vomiting, Diarrhea Genitourinary: Negative Negative: dysuria, flank pain Neurological/Mental Status: Negative All Other Systems Reviewed And Are Negative: Yes Physical Exam Triage Information Reviewed: Yes Vital Signs On Initial Exam: Initial Vitals Temp Pulse Resp BP Pulse Ox 97.5 F 106 20 129/93 95 05/28/19 09:02 05/28/19 09:02 05/28/19 09:02 05/28/19 09:02 05/28/19 09:02 Vital Signs Reviewed: Yes Appearance: Positive: Well-Appearing - Patient sitting in bed in no acute distress. Skin: Positive: Warm, Dry Head/Face: Positive: Normal Head/Face Inspection Eyes: Positive: Normal, EOMI Neck: Positive: Supple Respiratory/Lung Sounds: Positive: Clear to Auscultation, Breath Sounds Present Cardiovascular: Positive: Normal, RRR Abdomen Description: Positive: Other: - Abdomen is soft with tenderness epigastric right upper quadrant. Negative Balderas. No guarding or rebound tenderness. Negative CVA tenderness. Neurological: Positive: Normal, CN Intact II-III Psychiatric: Positive: Affect/Mood Appropriate Procedures - Sedation Patient Received Moderate/Deep Sedation with Procedure: No Diagnostics - Vital Signs Vital Signs Temp Pulse Resp BP Pulse Ox 05/28/19 09:02 97.5 F 106 20 129/93 95 - Laboratory Result Diagrams: 05/28/19 10:30 05/28/19 10:30 Lab Statement: Any lab studies that have been ordered have been reviewed, and results considered in the medical decision making process. Abdominal Pain Fem Course/Dx - Course Course Of Treatment: Patient with upper abdominal pain. Afebrile with stable vital signs. Patient declines pain medication was given Zofran for nausea. U/ S per radiology: IMPRESSION: 1. FATTY INFILTRATION OF THE LIVER. 2. THERE IS A 1.5 CM HYPOECHOIC LESION OF THE RIGHT LOBE OF LIVER. THIS IS INCOMPLETELY. CHARACTERIZED ON THE CURRENT EXAMINATION. IN THE ABSENCE OF A HISTORY OF MALIGNANCY,. RECOMMEND CONSIDERATION OF SHORT-TERM INTERVAL FOLLOW-UP WITH SIX- MONTH FOLLOW-UP. SONOGRAPHY OF THE LIVER, FURTHER CHARACTERIZATION WITH MULTIPHASE CONTRAST-ENHANCED LIVER. PROTOCOL CT OR CONTRAST-ENHANCED MRI OF THE ABDOMEN IN THE NONACUTE SETTING.. Blood work unremarkable other than mildly elevated CRP. Patient notes she has been under a lot of stress as she is moving and this increased her caffeine intake. GI cocktail given with improvement in symptoms. Suspect pain secondary to gastritis. Will start on Protonix. Discussed foods/drinks to avoid. Discussed liver abnormality. She will follow-up. PCP for further evaluation. We'll return to the ER if symptoms change or worsen. Patient understands and agrees with plan. - Diagnoses Differential Diagnosis: Positive: Ectopic , Gall Bladder Disease, Pancreatitis, Provider Diagnoses: Abdominal pain, Gastritis Discharge ED - Sign-Out/Discharge Documenting (check all that apply): Patient Departure - Discharge Plan Condition: Improved Disposition: HOME Prescriptions: Pantoprazole TAB * [Protonix TAB*] 40 mg PO DAILY #30 tab Patient Education Materials: Gastritis (ED), Diet for Stomach Ulcers and Gastritis (ED), Epigastric Pain (ED) Referrals: Mary Barreto MD [Primary Care Provider] - Additional Instructions: Schedule follow up appointment with PCP for recheck and for further evaluation of liver abnormality Take Protonix as directed Can take over the counter Tums, Maalox Avoid caffeine/coffee, foods high in acid or spice, NSAIDs Return to ER if symptoms change or worsen - Billing Disposition and Condition Condition: IMPROVED Disposition: Home - Attestation Statements Provider Attestation: I was available for consult. This patient was seen by the GORDON. The patient was not presented to, seen by, or examined by me. -Carola
[2019-05-28 10:42] LABS: ABS Eosinophils 0.1 10^3/ul (0-0.6); ABS Lymphocytes 1.2 10^3/ul (1.0-4.8); ABS Monocytes 0.7 10^3/ul (0-0.8); ABS Neutrophils 4.1 10^3/ul (1.5-7.7); Hematocrit 42 % (35-47); Hemoglobin 14.7 g/dL (12.0-16.0); Lymphocyte % 19.5 %; Mean Corpuscular HGB Conc 35 g/dL (31-36); Mean Corpuscular Hemoglobin 32 pg (27-31); Mean Corpuscular Volume 92 fL (80-97); Mean Platelet Volume 7.5 fL (7.4-10.4); Nucleated Red Blood Cells % 0.1; Platelet Count 254 10^3/uL (150-450); Red Blood Count 4.53 10^6 /uL (3.70-4.87); Red Cell Distribution Width 13 % (10-15); White Blood Count 6.1 10^3/uL (3.5-10.8)
[2019-05-28 11:05] LABS: ALT 18 U/L (7-52); AST 18 U/L (13-39); Albumin 4.6 g/dL (3.2-5.2); Albumin/Globulin Ratio 1.6 (1-3); Alkaline Phosphatase 67 U/L (34-104); Anion Gap 8 mmol/L (2-11); BUN/Creatinine Ratio 19.2 (8-20); Blood Urea Nitrogen 14 mg/dL (6-24); C Reactive Protein 15.43 mg/L (<8.01); CO2 Carbon Dioxide 21 mmol/L (22-32); Calcium 9.9 mg/dL (8.6-10.3); Chloride 108 mmol/L (101-111); EGFR African American 107.4 (>60); EGFR Non-African American 88.8 (>60); Globulin 2.9 g/dL (2-4); Glucose 83 mg/dL (70-100); Potassium 4.1 mmol/L (3.5-5.0); Sodium 137 mmol/L (135-145); Total Protein 7.5 g/dL (6.4-8.9)
[2019-05-28 11:07] LABS: HCG Pregnancy < 0.60 mIU/mL
[2019-05-28] MEDS ORDERED: Lidocaine 2% VISCOUS* 15 ML UDC PO ONE (12:03)
[2019-05-28] MEDS ORDERED: Al Hydrox/Mg Hydrox/Simet LIQ* 30 ML UDC PO ONE (12:03)
[2019-05-28 12:20] LABS: Urine Appearance Cloudy; Urine Bilirubin Negative (Negative); Urine Blood 1+ (Negative); Urine Color Yellow; Urine Glucose Negative (Negative); Urine Ketones Negative (Negative); Urine Nitrite Negative (Negative); Urine Protein Negative (Negative); Urine Specific Gravity 1.023 (1.010-1.030); Urine Urobilinogen Negative (Negative)
[2019-05-28 12:25] LABS: Urine Bacteria Absent (Absent); Urine Red Blood Cell Absent (Absent); Urine Squamous Epithelial Cell Present (Absent); Urine White Blood Cell Trace(0-5/hpf) (Absent)
[2019-05-28 13:52] VITALS: BP 129/87
== END 2019-05-28 13:50 | disposition home or self-care (01) ==
LOC: ED 09:00
DX: K29.70 Gastritis, unspecified, without bleeding (principal); R10.10 Upper abdominal pain, unspecified; Z79.899 Other long term (current) drug therapy; Z86.79 Personal history of other diseases of the circulatory system
CPT/HCPCS: 36415; 71045; 76705; 80053; 81003; 81015; 83690; 84702; 85025; 86140; 87086; 96374; 99283; A9270-GY; J2405